=== PATIENT | male | born 1990 | race Caucasian/White ===

== ENCOUNTER 2020-02-10 23:09 | Emergency (ER) | payer OTHER ==
[~2020-02-10] VITALS: Ht 172.7 cm; Wt 73.0 kg
[2020-02-10 23:25] VITALS: BP 144/90
== END 2020-02-11 01:01 | disposition left against medical advice (07) ==
LOC: ER 23:09
DX: R10.9 Unspecified abdominal pain (principal); R11.2 Nausea with vomiting, unspecified; F10.229 Alcohol dependence with intoxication, unspecified; Y90.0 Blood alcohol level of less than 20 mg/100 ml
CPT/HCPCS: 93005; 99283